=== PATIENT | male | born 1995 | race Caucasian/White ===

== ENCOUNTER 2017-03-10 16:56 | Emergency (ER) | payer BC ==
[~2017-03-10] VITALS: Ht 180.3 cm; Wt 62.5 kg
[~2017-03-10 16:56] MED LIST: BENTYL20 MG PO; CLEOCIN300 MG PO; HYDROCODON-ACE1 EAC7 PO; MOTRIN800 MG PO; NAPROSYN500 MG PO; NOHOMEMEDS; TORADOL10 MG PO; TRAZODONE HCL50 MG PO; VALACYCLOVIR1000 MG PO
[2017-03-10] MEDS ORDERED: TRAMADOL HCL50 MG PO (20:03)
[2017-03-10] MEDS ORDERED: FLEXERIL10 MG PO (20:03)
[2017-03-10] MEDS ORDERED: NAPROSYN500 MG PO (20:03)
[2017-03-10 21:05] VITALS: BP 95/77
== END 2017-03-10 21:06 | disposition home or self-care (01) ==
LOC: EME 16:56
DX: S80.212A Abrasion, left knee, initial encounter (principal); S80.211A Abrasion, right knee, initial encounter; S50.312A Abrasion of left elbow, initial encounter; S50.311A Abrasion of right elbow, initial encounter; S30.810A Abrasion of lower back and pelvis, initial encounter; S30.811A Abrasion of abdominal wall, initial encounter; V18.4XXA Pedal cycle driver injured in noncollision transport accident in traffic accident, initial encounter; Y93.55 Activity, bike riding; Y92.480 Sidewalk as the place of occurrence of the external cause; Z72.0 Tobacco use
CPT/HCPCS: 73564; 99281; 99284; J3010

== ENCOUNTER 2017-08-24 00:21 | Emergency (ER) | payer BC ==
[~2017-08-24] VITALS: Ht 177.8 cm; Wt 68.1 kg
[~2017-08-24 00:21] MED LIST changes: +FLEXERIL10 MG PO; +TRAMADOL HCL50 MG PO
[2017-08-24] MEDS ORDERED: FIORICET 50-301 EAC1 PO (02:55)
[2017-08-24 04:38] VITALS: BP 104/66
== END 2017-08-24 04:46 | disposition home or self-care (01) ==
LOC: EXP 00:21 → EME 00:21 → EXP 04:46
DX: R51 Headache (principal)
CPT/HCPCS: 70450

== ENCOUNTER 2017-10-25 02:12 | Emergency (ER) | payer BC ==
[~2017-10-25] VITALS: Ht 177.8 cm; Wt 65.4 kg
[~2017-10-25 02:12] MED LIST changes: +FIORICET 50-301 EAC1 PO
[2017-10-25 02:45] LABS: HEMATOCRIT 43.9 % (38.0-50.0); HEMOGLOBIN 15.3 G/DL (12.5-16.6); MCH 31.1 PG (29.0-34.0); MCHC 34.9 G/DL (30.0-36.0); MCV 89.2 FL (86-99); PLATELET COUNT 209 K/uL (156-360); RBC DIS.WIDTH-CV 12.5 % (11.8-14.6); RBC DIS.WIDTH-SD 40.9 % (39-53); RED BLOOD COUNT 4.92 M/uL (4.00-5.50); WHITE BLOOD COUNT 7.5 K/uL (4.1-10.2)
[2017-10-25 02:57] LABS: CHLORIDE 106 mEq/L (99-109); POTASSIUM 3.7 mEq/L (3.7-5.4); SODIUM 140 mEq/L (136-147)
[2017-10-25 02:58] LABS: GLUCOSE 73 mg/dL (70-99)
[2017-10-25 03:02] LABS: CREATININE 0.9 mg/dL (0.6-1.3); GFR ESTIMATE (CALCULATED) > 59 mL/min/ (58.99-99999); SERUM ETHYL ALCOHOL < 10 mg/dL
[2017-10-25 03:03] LABS: UREA NITROGEN (BUN) 13 mg/dL (9-23)
[2017-10-25 04:45] LABS: AMPHETAMINE NEGATIVE (500 ng/mL); BARBITURATES NEGATIVE (200 ng/mL); BENZODIAZEPINES NEGATIVE (150 ng/mL); BUPRENORPHINE NEGATIVE (10 ng/mL); COCAINE NEGATIVE (150 ng/mL); METHADONE NEGATIVE (200 ng/mL); METHAMPHETAMINE NEGATIVE (500 ng/mL); OPIATES (MORPHINE) NEGATIVE (100 ng/mL); OXYCODONE NEGATIVE (100 ng/mL); PHENCYCLIDINE NEGATIVE (25 ng/mL); PROPOXYPHENE NEGATIVE (300 ng/mL); THC CANNABINOIDS NEGATIVE (50 ng/mL); TRICYCLIC ANTIDEPRESSANTS NEGATIVE (300 ng/mL)
[2017-10-25 06:27] VITALS: BP 105/67
== END 2017-10-25 06:28 | disposition home or self-care (01) ==
LOC: EME 02:12
DX: F32.9 Major depressive disorder, single episode, unspecified (principal); F41.9 Anxiety disorder, unspecified; Z72.0 Tobacco use
CPT/HCPCS: 80048; 85027; 90839; 99281; 99285; G0480

== ENCOUNTER 2018-02-06 18:58 | Emergency (ER) | payer BC ==
[~2018-02-06] VITALS: Ht 177.8 cm; Wt 67.4 kg
[2018-02-06 19:53] LABS: HEMATOCRIT 42.9 % (38.0-50.0); HEMOGLOBIN 15.7 G/DL (12.5-16.6); MCH 31.5 PG (29.0-34.0); MCHC 36.6 G/DL (30.0-36.0); PLATELET COUNT 249 K/uL (156-360); RBC DIS.WIDTH-CV 12.3 % (11.8-14.6); RBC DIS.WIDTH-SD 38.5 % (39-53); RED BLOOD COUNT 4.99 M/uL (4.00-5.50); WHITE BLOOD COUNT 7.3 K/uL (4.1-10.2)
[2018-02-06 20:06] LABS: ALBUMIN 4.4 g/dL (3.2-4.8); CHLORIDE 106 mEq/L (99-109); POTASSIUM 4.4 mEq/L (3.7-5.4); SODIUM 142 mEq/L (136-147)
[2018-02-06 20:08] LABS: GLUCOSE 87 mg/dL (70-99); TOTAL PROTEIN 6.9 g/dL (6.4-8.3)
[2018-02-06 20:10] LABS: TOTAL BILIRUBIN 0.6 mg/dL (0.0-1.0)
[2018-02-06 20:12] LABS: ALKALINE PHOSPHATASE 71 IU/L (3-129); CREATININE 1.1 mg/dL (0.6-1.3); GFR ESTIMATE (CALCULATED) > 59 mL/min/ (58.99-99999)
[2018-02-06 20:13] LABS: UREA NITROGEN (BUN) 14 mg/dL (9-23)
[2018-02-06 20:14] LABS: AST (GOT) 17 IU/L (2-34)
[2018-02-06 20:15] LABS: ALT (GPT) 17 IU/L (3-49)
[2018-02-06 21:35] LABS: APPEARANCE CLEAR ((CLEAR)); BILIRUBIN NEGATIVE; BLOOD NEGATIVE; COLOR YELLOW ((YELLOW)); GLUCOSE (STRIP) NEGATIVE; KETONES NEGATIVE; LEUKOCYTES NEGATIVE; NITRITE NEGATIVE; PROTEIN (STRIP) NEGATIVE; SPECIFIC GRAVITY 1.023 (1.000-1.030); UCUL ADDED? NO; UROBILINOGEN 0.2 MG/DL (0.2-1.0)
[2018-02-06 21:53] LABS: AMPHETAMINE NEGATIVE (500 ng/mL); BARBITURATES NEGATIVE (200 ng/mL); BENZODIAZEPINES NEGATIVE (150 ng/mL); BUPRENORPHINE NEGATIVE (10 ng/mL); COCAINE NEGATIVE (150 ng/mL); METHADONE NEGATIVE (200 ng/mL); METHAMPHETAMINE NEGATIVE (500 ng/mL); OPIATES (MORPHINE) NEGATIVE (100 ng/mL); OXYCODONE NEGATIVE (100 ng/mL); PHENCYCLIDINE NEGATIVE (25 ng/mL); PROPOXYPHENE NEGATIVE (300 ng/mL); THC CANNABINOIDS NEGATIVE (50 ng/mL); TRICYCLIC ANTIDEPRESSANTS NEGATIVE (300 ng/mL)
[2018-02-06] MEDS ORDERED: ATIVAN0.5 MG PO (22:26)
[2018-02-06 22:42] VITALS: BP 111/71
== END 2018-02-06 22:43 | disposition home or self-care (01) ==
LOC: EME 18:58
PROVIDERS: Nurse Practitioner Family
DX: R25.9 Unspecified abnormal involuntary movements (principal); R45.86 Emotional lability; F17.200 Nicotine dependence, unspecified, uncomplicated; F32.9 Major depressive disorder, single episode, unspecified; F41.9 Anxiety disorder, unspecified
CPT/HCPCS: 70450; 80053; 81003; 85027; 93005; 99281; 99283

== ENCOUNTER 2018-03-02 22:16 | Emergency (ER) | payer BC ==
[~2018-03-02] VITALS: Ht 172.7 cm; Wt 68.0 kg
[~2018-03-02 22:16] MED LIST changes: +ATIVAN0.5 MG PO
[2018-03-02 22:21] VITALS: BP 00/000
== END 2018-03-03 00:51 | disposition left against medical advice (07) ==
LOC: EME 22:16
DX: R51 Headache (principal); Z53.21 Procedure and treatment not carried out due to patient leaving prior to being seen by health care provider